=== PATIENT | male | born 1940 | race Caucasian/White ===

== ENCOUNTER 2016-08-11 00:47 | Inpatient (IN) | payer MEDICARE, BC ==
[~2016-08-11] VITALS: Ht 162.6 cm; Wt 62.9 kg
--- NOTE | ~2016-08-11 | PR ---
[place], [place] PROGRESS NOTE NAME: RADHA VELAZQUEZ [facility] #: [id number] UNIT #: [id number] ROOM: [facility] DOCTOR: PARKER CHEN MD BIRTHDATE: [birth year] DOS: 08/12/2016 SUBJECTIVE: The patient is doing fine without any complaints. Denies any chest pains, palpitations. OBJECTIVE: VITAL SIGNS: Graphic trend shows a pressure of 128/60, pulse of 62, respirations 20, temperature 98.3. LUNGS: Clear. HEART: Regular. ABDOMEN: Soft. EXTREMITIES: Without any edema. ASSESSMENT AND PLAN: 1. Acute pulmonary edema, resolved. 2. Cardiomyopathy, ejection fraction of about 30-40% on maximal treatment plan. 3. End-stage renal disease, on dialysis. The patient is encouraged not eat at restaurants every day, which increases the intake of too much of salt. The patient can be discharged to home today. PARKER CHEN MD CM:PNTRANS [id number] PARKER CHEN MD 08/12/16 0936 interface
--- NOTE | ~2016-08-11 | WRIGHTHP ---
[place], [place] PATIENT HISTORY AND PHYSICAL EXAM NAME: RADHA VELAZQUEZ [facility] #: [id number] UNIT #: [id number] ROOM: [facility] DOCTOR: PARKER CHEN MD BIRTHDATE: [birth year] DOS: 08/11/2016 HISTORY OF PRESENT ILLNESS: This patient is 76 years old. The patient states that he did undergo dialysis on Wednesday. On Wednesday morning, he started coughing, which is productive of mostly clear sputum. Did not have any fever or chills. Wednesday, he did see Dr. Chang and magnesium prescription was given. He went to [facility] to fill it up and was not available, so he went home and continued to have increasing cough and some shortness of breath, so finally decided to come into the Emergency Room. He denies having any chest pains or palpitations, does not have any fever or chills, does not have any abdominal pain, any nausea, emesis. PAST MEDICAL HISTORY: 1. Significant for coronary artery disease with history of CABG in 2015. 2. End-stage renal failure, on dialysis. 3. Metabolic encephalopathy from urinary tract infection. 4. Ischemic cardiomyopathy. 5. Type 2 diabetes mellitus, non-insulin dependent. 6. Benign hypertension. 7. History of CA of bladder, CA prostate with ileal conduit. MEDICATIONS: Nephrocaps 1 tablet daily, calcium acetate 667 mg daily, omeprazole 40 daily, glimepiride 2 mg daily, lisinopril 10 mg daily, metoprolol 50 mg daily, Namzaric 14/10 daily, simvastatin 10 at bedtime. SOCIAL HISTORY: Nonsmoker, does not use any alcohol. Lives at home alone. PHYSICAL EXAMINATION: GENERAL: He is awake and alert and oriented. VITAL SIGNS: Graphic trend shows pressure 124/61, pulse of 63, respirations 22, temperature 97.8. HEENT: Unremarkable. LUNGS: Diminished breath sounds. No wheezes heard, a few rales heard at the lung bases. HEART: Regular. ABDOMEN: Soft, nontender. EXTREMITIES: Without any edema. LABORATORY DATA: Magnesium 1.5. Chest x-ray shows cardiomegaly and mild pulmonary edema, small to moderate pleural effusions with CHF. Comprehensive, glucose 158, BUN 66, creatinine 9.79. Electrolytes okay, potassium 5.2. White blood cell count is 14.3, hemoglobin 11.8. ASSESSMENT AND PLAN: 1. The patient who presents with cough and clear sputum, most likely he has acute pulmonary edema from cardiomyopathy. He does have a habit of eating in a restaurant every day, he is advised against doing that because of the increased salt intake. He is ordered dialysis today. Cardiology consultation was obtained. He was started on nitrates in the ER, which can be discontinued. 2. End-stage renal failure, on dialysis, for which Dr. Chang has been [place], [place] PATIENT HISTORY AND PHYSICAL EXAM [facility]: [facility] [id number] UNIT #: [id number] ROOM: [facility] DOCTOR: PARKER CHEN MD BIRTHDATE: [birth year] consulted. 3. Type 2 diabetes mellitus, non-insulin dependent, controlled. PARKER CHEN MD CM:HISPHYS:PATIENT HISTORY AND PHYSICAL EXAMINATION [id number] PARKER CHEN MD 08/11/16 1057 interface
--- NOTE | ~2016-08-11 | CON ---
[place], [place] REPORT OF CONSULTATION NAME: [facility]Z [facility] [id number] UNIT #: [id number] ROOM: [facility] DOCTOR: SARKIS LEMUS MD BIRTHDATE: [birth year] DOS: 08/11/2016 CARDIOLOGY CONSULTATION REASON FOR CONSULTATION: Dyspnea and cough. HISTORY OF PRESENT ILLNESS: The patient is a 76-year-old man with a complicated history of renal insufficiency and end-stage renal disease, on dialysis. He had staghorn calculi and underwent a urinary diversion and urostomy. He did require dialysis subsequently. We saw him in 02/2015 when he presented with chest pain. A nuclear perfusion study in 02/2015 showed no ischemia and ejection fraction is 73%. An echocardiogram showed an ejection fraction of 55% at about that time. He subsequently developed pleuritic chest pain and was felt to have pericarditis. He was treated with nonsteroidal anti-inflammatory drugs. His chest discomfort improved, but he developed bleeding from his urostomy. Anti-inflammatory drugs were stopped and he seemed to do well for a time until he presented to the hospital in 01/2016 with worsening dyspnea. The patient did undergo stress testing at that time and was found to have new changes. The ventricle was dilated with transient cavity dilation noted. He had abnormal perfusion images demonstrating a moderate sized area of anterior septal and apical ischemia as well as a small area of inferoseptal ischemia. His ejection fraction deteriorated to 33%. He was sent to [facility] where cardiac catheterization did show high grade left main stenosis as well as a 70% right coronary artery stenosis. He was taken to bypass surgery on 02/19/2016. Three-vessel procedure was done with an internal mammary artery graft to the LAD, saphenous vein graft to the first obtuse marginal and saphenous vein graft to the PDA. In addition, he had a mitral valve repair utilizing a 28 mm Poncho-Valdez IMR annuloplasty ring. Postoperatively, he did require balloon pump support, but was able to wean from that. His ejection fraction remained low and he was managed with guideline directed medical therapy along with a LifeVest. Clinically, he did improve and his most recent echocardiogram showed an ejection fraction between 35% and 40%. Therefore, the LifeVest was discontinued and he was managed medically and with continued dialysis. He states that he has had episodic dyspnea recently. Last night, his dyspnea became much more severe. He was scheduled to have dialysis today, but his breathing was so bad that he came into the Emergency Room. He was felt to have acute pulmonary edema and was admitted for further management. He was given Bumex in the Emergency Room with improvement in his symptoms. He is being placed on dialysis at this time. The patient denies any chest pain. He denies any recent change in his medications and denies any medication noncompliance. PAST MEDICAL HISTORY: Includes: 1. Hypertension. 2. Hyperlipidemia. 3. Kidney stones with staghorn calculus. 4. End-stage renal disease, on dialysis. 5. Status post nephrectomy on 01/03/2016. [place], [place] REPORT OF CONSULTATION NAME: RADHA VELAZQUEZ UNIT #: [id number] ROOM: [facility] DOCTOR: SARKIS LEMUS MD BIRTHDATE: [birth year] 6. Status post cataract removal. 7. History of pericarditis. 8. Worsening chest pain prompting catheterization on 02/19/2016. The patient found to have a 70%-80% left main stenosis with a 50% LAD stenosis, 60% circumflex stenosis, 70% stenosis of a dominant right coronary artery and a 30%-35% ejection fraction. 9. Bypass surgery 02/24/2016, free left internal mammary artery graft to the LAD, saphenous vein graft to first marginal branch of circumflex, saphenous vein graft to posterior descending branch of right coronary artery with mitral valve repair utilizing a 28 mm Poncho-Valdez IMR annuloplasty ring, postoperative intraaortic balloon pump necessary for hemodynamic support. 10. Echocardiogram 05/27/2016, moderately dilated left ventricle, ejection fraction 35%-40% with global hypokinesis, stage 2 diastolic dysfunction, moderate left atrial enlargement, aortic sclerosis, mitral annuloplasty ring present, no mitral stenosis or insufficiency seen, mild tricuspid insufficiency with right ventricular systolic pressure 45-50 mmHg (moderately elevated). MEDICATIONS: Prior to admission, Nephrocaps once a day, calcium acetate 667 mg daily, Nexium 40 mg daily, glimepiride 2 mg daily, lisinopril 10 mg daily, metoprolol 50 mg daily, Namzaric 14/10 one daily at bedtime, simvastatin 10 mg at bedtime. ALLERGIES: The patient has no known drug allergies. FAMILY HISTORY: Negative for early coronary artery disease. REVIEW OF SYSTEMS: The patient denies diplopia or loss of vision. He denies lightheadedness or syncope. He denies chest pain or palpitations. He has had cough and worsening dyspnea. He denies fevers, but has occasional chills. He denies any focal weakness. He denies nausea or vomiting. He denies hemoptysis or hematemesis. He denies change in bowel or bladder habits. He does have a urostomy in place and denies any bleeding recently. He denies any peripheral edema. He denies heat or cold intolerance. Remainder of the review of systems is negative except as noted above. SOCIAL HISTORY: The patient does not smoke or consume alcohol. PHYSICAL EXAMINATION: GENERAL: The patient is an elderly white male who is awake, alert and oriented. VITAL SIGNS: Pulse is 63 and regular, blood pressure is 124/60, he is afebrile. He weighs 62.8 kilograms with a body mass index of 23.8. HEENT: Normocephalic, atraumatic. Extraocular muscles are intact. Sclerae are clear. Pupils equal, round and react to light. The oral mucosa is moist. Tongue is midline. NECK: Supple. He does have jugular distention to the angle of the jaw plus hepatojugular reflux is present. Carotids are full and I heard no bruits. He had no neck or supraclavicular masses. LUNGS: Respirations are unlabored. He has decreased breath sounds with rales at the bases. CHEST: He has no chest wall tenderness. His sternotomy scar is well healed. [place], [place] REPORT OF CONSULTATION NAME: RADHA VELAZQUEZ UNIT #: [id number] ROOM: [facility] DOCTOR: SARKIS LEMUS MD BIRTHDATE: [birth year] CARDIOVASCULAR: His heart has a regular rhythm. There is a grade 2/6 systolic murmur along the left sternal border in the fourth intercostal space. There is no radiation. He has a fourth heart sound. I did not hear a third heart sound. The PMI is not obviously displaced and there is no precordial heave, lift or thrill. ABDOMEN: Soft and normally active without masses, organomegaly or bruits. EXTREMITIES: Showed no edema. Peripheral pulses were diminished in the feet. LABORATORY DATA: Electrocardiogram showed sinus rhythm. IMPRESSION: 1. Acute congestive heart failure in setting of left ventricular systolic and diastolic dysfunction along with chronic renal failure, on dialysis. 2. End-stage renal disease, on dialysis. 3. Coronary artery disease, status post recent bypass surgery for left main disease. The patient also had mitral valve repair at the same time. 4. Most recent stress test in 04/2016 showed an ejection fraction of about 35%-40%, no significant mitral insufficiency or stenosis, stage 2 diastolic dysfunction. 5. History of hypertension. 6. History of diabetes. 7. History of kidney stones requiring diverting urostomy and single nephrectomy. PLAN: The patient will be dialyzed today. His beta cindy and CATALINA inhibitor will be increased. We will check an echocardiogram for left ventricular function and make further recommendations depending on his response to the therapy and echo results. We thank Dr. Serna and Dr. Miller for asking our advice regarding management of this patient. SARKIS LEMUS MD CM:CONSTR:REPORT OF CONSULTATION 0900 08/11/16 1010 interface
[~2016-08-11 00:47] MED LIST: ALPRAZOLAM0.5 M3 PO; AMARYL2 MG PO; AMLODIPINE10 MG PO; ASPIRIN325 MG PO; ASPIRIN81 M1 PO; CALPHRON667 MG PO; CEFTIN250 MG PO; CEFTRIAXONE1 GM IJ; CEFUROXIME AXE250 MG PO; CIPRO500 MG PO; CLOPIDOGREL75 MG PO; DELTASONE5 MG PO; DOXYCYCLINE100 M3 PO; DUONEB 3 MG/3 ML3 M1 NEB; GLIMEPIRIDE4 MG PO; GOOD SENSE ASP325 MG PO; HYDROCODONE BIT1 T11 PO; IBU800 M1 PO; LEVAQUIN250 M1 PO; LEVAQUIN500 M2 PO; LISINOPRIL5 MG PO; NEPHRO-VITE RX1 TAB PO; NEPHRO-VITE1 TA1 PO; NEPHROCAPS1 SGL PO; NEXIUM40 MG PO; NORVASC10 MG PO; PHOSLO667 M1 PO; PLAVIX75 M1 PO; PREDNISONE10 MG PO; SANTYL250 U/GM T; SEROQUEL25 MG PO; SIMVASTATIN10 MG PO; SYMBICORT1 AE1 INH; TOPROL XL25 MG PO; TRAMADOL HCL50 MG PO; VENTOLIN H0.09 MG/AC INH; VITAMIN C PO; VITAMIN C1 TAB PO; VITAMIN C250 M2 PO
[2016-08-11] MEDS ORDERED: NAMZARIC 14 MG1 EACH PO (00:55)
[2016-08-11] MEDS ORDERED: LISINOPRIL10 M1 PO (00:55)
[2016-08-11 01:22] LABS: BASO # 0.1 10*3/uL (0.0-0.1); EOS # 0.2 10*3/uL (0.0-0.4); EOS % 1.3 % (1.0-4.0); HEMATOCRIT 36.9 % (42.0-52.0); HEMOGLOBIN 11.8 g/dl (14.0-18.0); IG # 0.1 10*3/uL (0.0-0.1); LYMPH # 3.3 10*3/uL (1.3-4.4); LYMPH % 23.1 % (27.0-41.0); MEAN CELL VOLUME 88.7 fl (80.0-94.0); MEAN CORPUSCULAR HGB 28.4 pg (27.0-31.0); MEAN PLATELET VOLUME 10.7 fl (9.6-12.3); MONO # 1.1 10*3/uL (0.1-1.0); MONO % 7.6 % (3.0-9.0); NEUT # 9.4 10*3/uL (2.3-7.9); PLATELET COUNT AUTOMATED 163 10*3/uL (130-400); RED BLOOD COUNT 4.16 10*6/uL (4.50-5.90); RED CELL DISTRI WIDTH 16.5 % (0-14.5); WHITE BLOOD COUNT 14.3 10*3/uL (4.8-10.8)
[2016-08-11 01:38] LABS: ALBUMIN 3.5 gm/dl (3.1-4.5); BILIRUBIN, TOTAL 0.5 mg/dl (0.2-1.0); POTASSIUM 5.2 mmol/L (3.5-5.1); TOTAL PROTEIN 8.3 gm/dL (6.4-8.2); TROPONIN I 0.045 ng/ml (<0.045)
[2016-08-12] MEDS ORDERED: MAGNESIUM OXID400 MG PO (08:22)
== END 2016-08-12 08:55 | disposition home or self-care (01) | DRG 291 ==
LOC: ED 00:47 → EDHOLD 02:22 → ICCU 02:37
PROVIDERS: Emergency Medicine Emergency Medical Services
PROC: 5A1D00Z (ICD-10-PCS; principal; 2016-08-11)
DX: I13.2 Hypertensive heart and chronic kidney disease with heart failure and with stage 5 chronic kidney disease, or end stage renal disease (principal); N18.6 End stage renal disease; I42.9 Cardiomyopathy, unspecified; I50.43 Acute on chronic combined systolic (congestive) and diastolic (congestive) heart failure; E83.42 Hypomagnesemia; E11.22 Type 2 diabetes mellitus with diabetic chronic kidney disease; I25.10 Atherosclerotic heart disease of native coronary artery without angina pectoris; Z99.2 Dependence on renal dialysis; Z98.49 Cataract extraction status, unspecified eye

== ENCOUNTER 2016-08-24 19:13 | Inpatient (IN) | payer MEDICARE, BC ==
[~2016-08-24] VITALS: Ht 162.6 cm; Wt 59.1 kg
--- NOTE | ~2016-08-24 | PR ---
[place], [place] PROGRESS NOTE NAME: RADHA VELAZQUEZ UNIT #: [id number] ROOM: [id number] DOCTOR: TALI STONE,FIORELLA Rodrigues BIRTHDATE: [birth year] DOS: SUBJECTIVE: The patient is doing fine without any new complaints. He is anxious to go home. OBJECTIVE: VITAL SIGNS: Temperature is 137/71, pulse is 61, respirations 20, temperature 98.1. LUNGS: Clear. HEART: Regular. ABDOMEN: Soft. EXTREMITIES: Without any edema. Ileostomy working fine. LABORATORY DATA: MRSA nares negative. Urine culture 100,000 colonies of gram-negative bacteria. DIAGNOSTIC DATA: Chest x-ray shows normal pulmonary vasculature without any evidence of CHF. ASSESSMENT AND PLAN: 1. Acute congestive heart failure, systolic, status post hemodialysis yesterday and the patient is fine. He really needs to be encouraged to stop eating salty foods. The patient is stable and can be discharged. 2. Urinary tract infection with gram-negative. Cipro's prescription is given for 250 mg every other day. FIORELLA CESAR MD CM:PNTRANS [id number] FIORELLA CESAR MD 08/26/16 1031 interface
--- NOTE | ~2016-08-24 | WRIGHTHP ---
[place], [place] PATIENT HISTORY AND PHYSICAL EXAM NAME: RADHA VELAZQUEZ [facility] #: [id number] UNIT #: [id number] ROOM: [facility] DOCTOR: PARKER CHEN MD BIRTHDATE: [birth year] DOS: 08/24/2016 HISTORY OF PRESENT ILLNESS: The patient is a 76-year-old, very well known to us, comes in with complaints of acute onset of shortness of breath, which started in the middle of the night with a cough, which is productive of clear frothy sputum. He was brought into the Emergency Room where he was found to be in CHF and was admitted. The patient states that he had dialysis on Wednesday. On Wednesday, he was in [place] and stopped at the [facility] and he had a lot of ferreira from the buffet. He is aware of the fact that he should not be eating high salty foods, but he is not very compliant. He denies having any chest pains or any palpitations this morning. PAST MEDICAL HISTORY: Significant for; 1. Acute respiratory failure with acute congestive heart failure, systolic, a few weeks ago. 2. Noncompliance with poor insight to medical problems. 3. Coronary artery disease of morongo coronary, status post CABG in 2016. 4. End-stage renal failure, on dialysis. 5. Benign hypertension. 6. Type 2 diabetes mellitus, non-insulin dependent. 7. History of CA of the ureter, CA of the bladder, and CA of the prostate with the ileal conduit. SOCIAL HISTORY: Nonsmoker, does not use any alcohol. PHYSICAL EXAMINATION: GENERAL: The patient is awake and alert and oriented, in no distress, in the ICU, was started on dialysis already. VITAL SIGNS: Blood pressure is 139/58, pulse is 60, respirations 19, and temperature 98.2. LUNGS: Diminished breath sounds, clear. HEART: Regular. ABDOMEN: Obese, soft, nontender. EXTREMITIES: Without any edema, ileostomy draining clear urine. ASSESSMENT AND PLAN: 1. The patient, who presents with acute onset shortness of breath from acute systolic congestive heart failure. The patient is ordered emergent dialysis. After the dialysis, a chest x-ray will be ordered and if it looks good, the patient should be able to go home. 2. End-stage renal failure, on dialysis. May require a short dialysis on Mondays to avoid further problems like this and this is the second admission. 3. Benign hypertension, controlled. The patient is encouraged to watch his diet a little bit more carefully, especially avoiding salty foods. [place], [place] PATIENT HISTORY AND PHYSICAL EXAM NAME: RADHA VELAZQUEZ UNIT #: [id number] ROOM: [facility] DOCTOR: PARKER CHEN MD BIRTHDATE: [birth year] PARKER CHEN MD CM:HISPHYS:PATIENT HISTORY AND PHYSICAL EXAMINATION [id number] PARKER CHEN MD 08/25/16 1034 interface
[~2016-08-24 19:13] MED LIST changes: +LISINOPRIL10 M1 PO; +MAGNESIUM OXID400 MG PO; +NAMZARIC 14 MG1 EACH PO
[2016-08-24 19:27] VITALS: BP 179/75
[2016-08-24 19:51] LABS: BASO # 0.1 10*3/uL (0.0-0.1); BASO % 0.7 % (0.0-1.0); EOS # 0.2 10*3/uL (0.0-0.4); EOS % 1.8 % (1.0-4.0); HEMOGLOBIN 11.7 g/dl (14.0-18.0); IG # 0.1 10*3/uL (0.0-0.1); LYMPH % 23.8 % (27.0-41.0); MEAN CORPUSCULAR HGB 29.3 pg (27.0-31.0); MEAN CORPUSCULAR HGB CONC 32.5 g/dl (33.0-37.0); MEAN PLATELET VOLUME 10.9 fl (9.6-12.3); MONO # 1.1 10*3/uL (0.1-1.0); MONO % 8.5 % (3.0-9.0); NEUT # 8.1 10*3/uL (2.3-7.9); NEUT % 64.4 % (47.0-73.0); PLATELET COUNT AUTOMATED 161 10*3/uL (130-400); RED CELL DISTRI WIDTH 15.5 % (0-14.5); WHITE BLOOD COUNT 12.6 10*3/uL (4.8-10.8)
[2016-08-24 19:59] LABS: INTERNATIONAL NORM RATIO 1.2 (2.0-3.5); PROTHROMBIN TIME 12.5 SECONDS (9.0-12.4)
[2016-08-24 20:09] LABS: ALBUMIN 3.1 gm/dl (3.1-4.5); BILIRUBIN, TOTAL 0.4 mg/dl (0.2-1.0); POTASSIUM 5.5 mmol/L (3.5-5.1); TOTAL PROTEIN 8.4 gm/dL (6.4-8.2); TROPONIN I 0.028 ng/ml (<0.045)
[2016-08-24 20:10] VITALS: BP 156/75
[2016-08-24 20:35] VITALS: BP 157/54
[2016-08-24 20:40] LABS: ABG BASE EXCESS 0.4 mmol/L (-2.0-2.0); ABG CO2 CONTENT 24.8 mmol/L (23-27); ABG HCO3 23.7 mmol/l (22-26); ARTERIAL BLOOD GAS PH 7.443 (7.35-7.45); ARTERIAL BLOOD GAS PO2 73.4 mmHg (80-90)
[2016-08-24 21:02] VITALS: BP 152/58
[2016-08-24 21:15] VITALS: BP 142/56; BP 142/66
[2016-08-24] MEDS ORDERED: DULCOLAX5 M1 PO (21:39)
[2016-08-24 22:20] LABS: BILIRUBIN NEGATIVE (NEGATIVE); BLOOD 3+ (NEGATIVE); CLARITY CLOUDY (CLEAR); COLOR YELLOW (YELLOW); GLUCOSE NEGATIVE (NEGATIVE); KETONE NEGATIVE (NEGATIVE); LEUKO ESTERASE 3+ (NEGATIVE); NITRITE NEGATIVE (NEGATIVE); PROTEIN 3+ (NEGATIVE); SPECIFIC GRAVITY 1.015 (1.005-1.030); UROBILINOGEN 0.2 E.U./dl (0.2-1.0)
[2016-08-24] MEDS ORDERED: TESSALON PERLE100 MG PO (22:33)
[2016-08-24 22:39] LABS: URINE REFLEX COMMENT YES (NO); WBC TNTC wbc/hpf (0-5)
[2016-08-25] VITALS (12 sets, daily range): BP systolic 96–159; BP diastolic 45–75
[2016-08-26] VITALS: BP 150/68; BP 1509/68
[2016-08-26 08:00] VITALS: BP 137/71
[2016-08-26] MEDS ORDERED: CIPRO250 MG PO (08:18)
== END 2016-08-26 08:44 | disposition home or self-care (01) | DRG 291 ==
LOC: ED 19:13 → 4E 19:51 → EDHOLD 19:51 → ICCU 20:29 → 4E 08-25 13:57
PROVIDERS: Emergency Medicine
PROC: 5A1D00Z (ICD-10-PCS; principal; 2016-08-25)
DX: I13.2 Hypertensive heart and chronic kidney disease with heart failure and with stage 5 chronic kidney disease, or end stage renal disease (principal); N18.6 End stage renal disease; J81.1 Chronic pulmonary edema; E11.22 Type 2 diabetes mellitus with diabetic chronic kidney disease; I50.23 Acute on chronic systolic (congestive) heart failure; N39.0 Urinary tract infection, site not specified; Z99.2 Dependence on renal dialysis; Z85.51 Personal history of malignant neoplasm of bladder; Z85.46 Personal history of malignant neoplasm of prostate; Z85.54 Personal history of malignant neoplasm of ureter; Z91.14 Patient's other noncompliance with medication regimen; I25.10 Atherosclerotic heart disease of native coronary artery without angina pectoris; Z95.1 Presence of aortocoronary bypass graft; D63.1 Anemia in chronic kidney disease; K21.9 Gastro-esophageal reflux disease without esophagitis; Z87.891 Personal history of nicotine dependence; I25.5 Ischemic cardiomyopathy

== ENCOUNTER 2016-09-29 11:53 | Inpatient (IN) | payer MEDICARE, BC ==
[~2016-09-29] VITALS: Ht 157.4 cm; Wt 62.3 kg
--- NOTE | ~2016-09-29 | CON ---
[place], [place] REPORT OF CONSULTATION [id number] UNIT #: [id number] ROOM: 520 DOCTOR: ALDAIR KANG MD,SERGEY BIRTHDATE: [birth year] DOS: 09/30/2016 PULMONARY CONSULTATION EVALUATION AND MANAGEMENT CONSULTATION REQUESTED BY: Dr. Melina Serna for assessment of the current pleural fluid. HISTORY OF PRESENT ILLNESS: A 76 years old white male who has been known to me from the past. The patient admitted to the hospital the patient as he has been developing symptoms of increased chest congestion, coughing with intermittent sputum expectoration for this patient. He was also noted with symptoms of shortness breath with some wheezing at time. The wheezing was noted only mild. The symptoms have progressed for this patient requiring assessment in the Emergency Room. The patient was assessed in the Emergency Room for the patient, was noted with acute exacerbation of chronic obstructive pulmonary disease and acute bronchitis. Chest x-ray described as the findings of pleural effusions. The patient has been hospitalized for this patient for the further medical management. The patient has a CT scan of the chest, which was ordered by Dr. Melina Serna completed was showing evidence of pleural effusion. I was asked to see the patient for possible thoracentesis consideration and to assess the patient ongoing acute abnormal respiratory symptoms. He denies any symptoms of chest pain. There were no symptoms of hemoptysis or chest trauma. REVIEW OF SYSTEMS: CONSTITUTIONAL SYMPTOMS: Denies symptoms of fatigue, tiredness, fever or chills. EYES: Denies any burning, redness, or tenderness. EARS, NOSE, AND THROAT: No sore throat, hoarseness, otalgia, postnasal drainage. CARDIOVASCULAR SYSTEM: Denies anginal pain, edema or pain of the lower extremities. GASTROINTESTINAL SYMPTOMS: Denies symptoms of dysphagia, nausea, vomiting, diarrhea, abdominal pain, hematemesis, melena. GENITOURINARY SYMPTOMS: Denies dysuria, suprapubic pain, history of end-stage renal failure. History of cancer of the ureter for this patient as well. MUSCULOSKELETAL SYMPTOMS: Denies acute joint pain, redness, or tenderness. SKIN: Denies any lesions or rashes. CENTRAL NERVOUS SYSTEM: Denies symptoms of diplopia, headache or seizures. Remaining systems were reviewed with the patient, they were noted all negative. PAST MEDICAL HISTORY: 1. End-stage renal failure, hemodialysis on Wednesday, and Saturdays. 2. Mild kidney stones with left nephrectomy for the patient because of kidney malfunctions. 3. History of tobacco use. 4. History of cancer of the bladder of the patient diversion ureterostomy. 5. Type 2 diabetes mellitus. 6. History of essential hypertension. [place], [place] REPORT OF CONSULTATION NAME: RADHA VELAZQUEZ UNIT #: [id number] ROOM: [facility] DOCTOR: ALDAIR KANG MD,SERGEY BIRTHDATE: [birth year] PAST SURGICAL HISTORY: 1. Left arm graft for this patient for the dialysis of the patient which is described with malfunction as per the patient recently. 2. Left nephrectomy, which was done [facility], which was described to be nonmalignant. 3. Hysterectomy. 4. Prostatectomy. 5. Uteroscopy. 6. Kidney stent insertion. SOCIAL HISTORY: The patient lives at home, , has 2 children. Denies history of alcohol use or illicit drug use. Tobacco use for the patient noted since teenager, pack of cigarettes per day until 1995. FAMILY HISTORY: The patient noted with history of cirrhosis of the liver and type 2 diabetes mellitus. MEDICATIONS: Current administered medication was noted as use of levalbuterol, metoprolol succinate, lisinopril, Protonix, Namzaric 14 mg daily, simvastatin, Tessalon Perles, other p.r.n. medications administration. ALLERGIES: The drug allergy history of the patient was noted as no known drug allergies. PHYSICAL EXAMINATION: GENERAL: A 76 years old white male who has been currently noted to be awake and alert without any distress. Height of 5 feet 2 inches, weight of 137 pounds, BMI 25.1. VITAL SIGNS: Normal temperature, respiratory rate 20-22, heart rate 82-91, blood pressure 133/67-160/88. The admission blood pressure noted as 160/100. A pulse oxygen saturation of the patient noted on room air was 96% saturation. HEENT: . NECK: Supple. Head was atraumatic. CARDIOVASCULAR SYSTEM: S1, S2 audible. LUNGS: The patient was noted without any crackles. Scattered wheezing. Decreased breath sounds noted in the lower portion of the lungs for this patient. Right greater than the left. ABDOMEN: Soft, nontender, flat. EXTREMITIES: Show no edema, clubbing or cyanosis. AV fistula formation of the left upper extremity was seen. SKIN: No lesions or rashes. MUSCULOSKELETAL SYMPTOMS: No deformities. CENTRAL NERVOUS SYSTEM: No focal deficit. Cranial nerves 2-12 intact. LABORATORY DATA: CBC of the patient on 09/29/2016, WBC count 10.3, hemoglobin 11.2, hematocrit 34.2, platelet count was normal. PT/PTT yesterday was noted as normal on admission. CMP yesterday on admission, BUN of 17, creatinine 4.47. Electrolytes grossly noted normal. Total protein elevated at 8.5. Bedside blood glucose noted 6 and 25 this morning. The BMP of the patient for this patient this morning, glucose 6 and 25, BUN 39, creatinine of 7.02. Sodium 132, [place], [place] REPORT OF CONSULTATION NAME: RADHA VELAZQUEZ UNIT #: [id number] ROOM: [facility] DOCTOR: ALDAIR KANG MD,[facility] BIRTHDATE: [birth year] chloride of 89. Ketone was noted negative in the urine. Chest x-ray of the patient that was done shows small bilateral pleural fluid, great on the right than the left side. CT scan of the chest for the patient, which was done without contrast yesterday completed as well shows evidence of a small possible moderate pleural fluid on the right side for this patient and very small left-sided pleural fluid was seen. Pulmonary venous congestion noted with the cardiomegaly. IMPRESSION: 1. The patient who has been currently admitted to the hospital with findings consistent with acute exacerbation of chronic obstructive pulmonary disease and acute tracheobronchitis. 2. Severely uncontrolled hyperglycemia secondary use of corticosteroids has been discontinued this morning. There was no evidence of diabetic ketoacidosis. 3. Pleural fluid for the patient, which has been noted on CT scan of the chest. 4. History of end-stage renal failure, hemodialysis patient every Wednesday, and Wednesday. 5. Electrolyte imbalance of the patient secondary to current end-stage renal failure on hemodialysis. 6. History of bladder cancer. PLAN OF TREATMENT: The assessment has been done at the bedside for this patient where the ultrasound shows a small pleural fluid for this patient. Possibly moderate about 150-200 mL potentially was present in the right side. Left pleural fluids were noted negligible. At this time, I would not be attempting any thoracentesis as the fluid was noted small at this time and most likely related to the congestive heart failure, end-stage renal failure, finding need to be monitored and managed with conservative treatment. The patient will be requiring hemodialysis for the patient. Extra free fluid removed for the patient and monitoring of the pleural fluid will be advised. The pleural fluid further increases at this time or there is any consideration for infection for this patient certainly thoracentesis could be done at that time. Agree with discontinuation of Solu-Medrol. The patient got severe hyperglycemia. Continue to manage the diabetes mellitus and hyperglycemia. Bronchodilator to be continued at this time as ordered. This should result in resolution of the wheezing. The patient will be started on oral antibiotics for this patient for the medical management of acute tracheobronchitis as well. The Pulmicort Respules could be added as alternative treatment to resolve the acute exacerbation of chronic obstructive pulmonary disease as well. The patient was asked for continued abstinence from tobacco use. Supportive therapy, plan of management, other care, usual plan of management as well. Further treatment changes will be done based on the progression of the illness. [place], [place] REPORT OF CONSULTATION NAME: RADHA VELAZQUEZ UNIT #: [id number] ROOM: 520 DOCTOR: SERGEY HERRERA MD BIRTHDATE: [birth year] SERGEY QUINTEROS MD CM:CONSTR:REPORT OF CONSULTATION 1238 10/01/16 0438 interface
--- NOTE | ~2016-09-29 | WRIGHTHP ---
[place], [place] PATIENT HISTORY AND PHYSICAL EXAM NAME: RADHA VELAZQUEZ [facility] #: [id number] UNIT #: [id number] ROOM: 520 DOCTOR: PARKER CHEN MD BIRTHDATE: [birth year] DOS: 09/29/2016 HISTORY OF PRESENT ILLNESS: The patient is 76 years old. The patient states for the last 2 days, he has had a terrible cough and has not been able to stop coughing at all. He had dialysis yesterday and he did fine, but continued to cough. He went home and since the cough persisted, his son brought him to the Emergency Room. He also had some mild shortness of breath by then, and he was coughing up white frothy sputum. He was evaluated in the ER, was thought to be having acute bronchitis and exacerbation of COPD and so, he was given steroids in the ER and he was admitted. His chest x-ray showed bilateral small pleural effusions in the ER. After admission, he did fine without any complaints during the night. This morning, he had a CAT scan, but I was not informed about the results. This morning, his blood sugar was 600. Initially, we did start workup to rule out DKA. The patient's acetone level is pending at the time of dictation, but a stat basic metabolic shown wide anion gap. He does not have any complaints of chest pains or palpitations. Cough is improving. He does not have any leg edema. He has had some problems with his shunt getting clotted off yesterday, but he did complete his dialysis as per the patient. PAST MEDICAL HISTORY: Significant for: 1. Coronary artery disease with history of LV dysfunction and multiple admissions for congestive heart failure. 2. Type 2 diabetes mellitus, non-insulin dependent. 3. End-stage renal failure, on dialysis. 4. Benign hypertension. 5. CA of the ureter, bladder and prostate with ileal conduit. MEDICATIONS: Home medications, Tessalon Perles, Dulcolax, Nephrocaps, calcium acetate, omeprazole, lisinopril, metoprolol, Namzaric and simvastatin. SOCIAL HISTORY: Nonsmoker, does not use any alcohol. PHYSICAL EXAMINATION: GENERAL: He is awake and alert and oriented. VITAL SIGNS: Blood pressure is 124/64, pulse of 95, respirations 20, temperature 98.2. LUNGS: Diminished breath sounds, very poor air entry. HEART: Regular and tachycardic. ABDOMEN: Soft, with ileal conduit in place. EXTREMITIES: Without any edema. ASSESSMENT AND PLAN: 1. The patient with cough and shortness of breath. A CT of the chest shows bilateral pleural effusion, worse on the right side. I will ask Dr. Henson for an opinion, whether the patient would benefit from thoracentesis is a question, assess for home O2. 2. Irregular heartbeat. EKG appears to show sinus tachy with multiple premature atrial contractions. We will increase the dose of the metoprolol and avoid DuoNeb, which he has received during the night. 3. End-stage renal failure. Discussed with Dr. Saleem. There have been some [place], [place] PATIENT HISTORY AND PHYSICAL EXAM [facility]: [id number] UNIT #: [id number] ROOM: [facility] DOCTOR: PARKER CHEN MD BIRTHDATE: [birth year] issues with his shunt clogging off. He may need to go to an outpatient facility for an outpatient procedure, but Dr. Saleem will see him later today and he will make the decision. 4. Type 2 diabetes mellitus with steroid-induced hyperglycemia. Even though the wide anion gap was noted, ketone level was normal, so the patient will not be given any IV insulin. I will cover with insulin and let the blood sugars trend down. We will also discontinue the steroids. 5. Acute bronchitis, p.o. antibiotics will be started. PARKER CHEN MD CM:HISPHYS:PATIENT HISTORY AND PHYSICAL EXAMINATION [id number] PARKER CHEN MD 09/30/16 0922 interface
[~2016-09-29 11:53] MED LIST changes: +CIPRO250 MG PO; +DULCOLAX5 M1 PO; +TESSALON PERLE100 MG PO
[2016-09-29 11:54] VITALS: BP 160/100
[2016-09-29 12:43] LABS: BASO # 0.1 10*3/uL (0.0-0.1); EOS # 0.1 10*3/uL (0.0-0.4); EOS % 1.3 % (1.0-4.0); HEMATOCRIT 34.2 % (42.0-52.0); HEMOGLOBIN 11.2 g/dl (14.0-18.0); IG # 0.1 10*3/uL (0.0-0.1); LYMPH # 2.4 10*3/uL (1.3-4.4); LYMPH % 23.4 % (27.0-41.0); MEAN CELL VOLUME 91.7 fl (80.0-94.0); MEAN CORPUSCULAR HGB CONC 32.7 g/dl (33.0-37.0); MEAN PLATELET VOLUME 10.7 fl (9.6-12.3); MONO % 9.2 % (3.0-9.0); NEUT # 6.6 10*3/uL (2.3-7.9); NEUT % 63.8 % (47.0-73.0); PLATELET COUNT AUTOMATED 194 10*3/uL (130-400); RED BLOOD COUNT 3.73 10*6/uL (4.50-5.90); WHITE BLOOD COUNT 10.3 10*3/uL (4.8-10.8)
[2016-09-29 12:53] LABS: INTERNATIONAL NORM RATIO 1.1 (2.0-3.5); PROTHROMBIN TIME 11.9 SECONDS (9.0-12.4)
[2016-09-29 12:59] LABS: ALBUMIN 3.2 gm/dl (3.1-4.5); BILIRUBIN, TOTAL 0.5 mg/dl (0.2-1.0); C-REACTIVE PROTEIN 8.3 MG/DL (0-0.3); CKMB 2.2 ng/ml (0.5-3.6); MAGNESIUM 1.6 mg/dL (1.5-2.1); POTASSIUM 3.7 mmol/L (3.5-5.1); TOTAL PROTEIN 8.5 gm/dL (6.4-8.2); TROPONIN I 0.024 ng/ml (<0.045)
[2016-09-29 14:04] VITALS: BP 133/65
[2016-09-29 15:00] VITALS: BP 155/73
[2016-09-29 16:00] VITALS: BP 178/74
[2016-09-29 20:00] VITALS: BP 152/65
[2016-09-30] VITALS: BP 124/64
[2016-09-30 08:00] VITALS: BP 160/88
[2016-09-30 12:00] VITALS: BP 133/67
== END 2016-09-30 16:02 | disposition home or self-care (01) | DRG 291 ==
LOC: ED 11:53 → EDHOLD 13:36 → 5E 13:36
PROVIDERS: Emergency Medicine; Internal Medicine
DX: I13.2 Hypertensive heart and chronic kidney disease with heart failure and with stage 5 chronic kidney disease, or end stage renal disease (principal); N18.6 End stage renal disease; E11.00 Type 2 diabetes mellitus with hyperosmolarity without nonketotic hyperglycemic-hyperosmolar coma (NKHHC); I42.9 Cardiomyopathy, unspecified; I50.43 Acute on chronic combined systolic (congestive) and diastolic (congestive) heart failure; J44.0 Chronic obstructive pulmonary disease with (acute) lower respiratory infection; J44.1 Chronic obstructive pulmonary disease with (acute) exacerbation; E11.22 Type 2 diabetes mellitus with diabetic chronic kidney disease; I25.10 Atherosclerotic heart disease of native coronary artery without angina pectoris; E87.8 Other disorders of electrolyte and fluid balance, not elsewhere classified; J20.9 Acute bronchitis, unspecified; K21.9 Gastro-esophageal reflux disease without esophagitis; E78.5 Hyperlipidemia, unspecified; D63.8 Anemia in other chronic diseases classified elsewhere; E53.8 Deficiency of other specified B group vitamins; T38.0X5A Adverse effect of glucocorticoids and synthetic analogues, initial encounter; I49.1 Atrial premature depolarization; Y92.89 Other specified places as the place of occurrence of the external cause; Z79.899 Other long term (current) drug therapy; Z85.54 Personal history of malignant neoplasm of ureter; Z90.79 Acquired absence of other genital organ(s); Z90.5 Acquired absence of kidney; Z83.79 Family history of other diseases of the digestive system; Z83.3 Family history of diabetes mellitus; Z87.440 Personal history of urinary (tract) infections; Z95.1 Presence of aortocoronary bypass graft; Z87.891 Personal history of nicotine dependence

== ENCOUNTER → 2016-11-17 | Outpatient (CLI) | payer MEDICARE, BC | END | disposition home or self-care (01) | LOC: RAD 10:15 | DX: I11.0 Hypertensive heart disease with heart failure (principal); I50.9 Heart failure, unspecified; J90 Pleural effusion, not elsewhere classified; E11.9 Type 2 diabetes mellitus without complications; Z95.1 Presence of aortocoronary bypass graft; Z87.891 Personal history of nicotine dependence ==

== ENCOUNTER → 2017-01-14 | Outpatient (CLI) | payer MEDICARE, BC | END | disposition home or self-care (01) | LOC: LAB 07:30 → CT 08:00 | PROVIDERS: Internal Medicine Critical Care Medicine | DX: J90 Pleural effusion, not elsewhere classified (principal); R06.02 Shortness of breath ==

== ENCOUNTER 2017-01-31 09:37 | Inpatient (IN) | payer MEDICARE, BC ==
[~2017-01-31] VITALS: Ht 157.4 cm; Wt 59.0 kg
--- NOTE | ~2017-01-31 | EKG ---
[place], [place] ELECTROCARDIOGRAM REPORT NAME: RADHA VELAZQUEZ UNIT #: [id number] ROOM: 412 DOCTOR: ANSLEY STONE,JARAD BIRTHDATE: [birth year] DOS: 01/31/2017 TIME: 9:44 a.m. IMPRESSION: 1. Sinus rhythm, rate 100. 2. Probable left atrial enlargement. 3. Left ventricular hypertrophy. JARAD PANCHAL MD CM:EKGRPT:ELECTROCARDIOGRAM REPORT [id number] JARAD PANCHAL MD
--- NOTE | ~2017-01-31 | WRIGHTHP ---
[place], [place] PATIENT HISTORY AND PHYSICAL EXAM NAME: RADHA VELAZQUEZ [facility] #: [id number] UNIT #: [id number] ROOM: 412 DOCTOR: PARKER CHEN MD BIRTHDATE: [birth year] DOS: HISTORY OF PRESENT ILLNESS: A 76 years old patient is very well known to us, presents with complaints of acute onset of shortness of breath. The patient called his son and was brought to the Emergency Room. He had significant hypoxemia when he arrived to the Emergency Room. He was also noticed to have JVD elevation. The patient is not very compliant with his diet. He, after his dialysis today, went home and brought some ____ from a local store and had the [facility] [employer] sauce and soon after that he developed increasing shortness of breath. The patient has been told multiple times over the last several months that he should not be eating anything salty. He claims that ____ did not taste salty. He does not have any chest pains or palpitations, does not have any fever or chills. He was admitted to the hospital, received 2 hours of dialysis, which helped him significantly, feeling good this morning. PAST MEDICAL HISTORY: Significant for; 1. Multiple hospitalizations with CHF. 2. Coronary artery disease. 3. Type 2 diabetes mellitus, non-insulin dependent. 4. End-stage renal failure, on dialysis. 5. Benign hypertension. 6. CA of the ureter, bladder and prostate with ileal conduit. 7. History of CABG. MEDICATIONS: That he is on are DuoNeb, calcium acetate, omeprazole, glimepiride, lisinopril, metoprolol, Namzaric and simvastatin. SOCIAL HISTORY: Nonsmoker. Does not use any alcohol. PHYSICAL EXAMINATION: VITAL SIGNS: Blood pressure is 135/64, pulse of 75, respirations 18 and temperature 98.1. LUNGS: Clear this morning. HEART: Regular. ABDOMEN: Soft, scaphoid. EXTREMITIES: Without any edema. LABORATORY DATA: At the time of admission, WBC count is 11.6, hemoglobin 11.4, hematocrit 38.2 and lactic acid 2.5. Chest x-ray: Congestive heart failure. There is also focal infiltrate in the right lower lobe. ASSESSMENT AND PLAN: 1. Acute hypoxic respiratory failure. The patient was given ____ extra dose of dialysis and seems to be better this morning, however, excessive oximetry. 2. Acute systolic congestive heart failure with last echocardiogram done on July 2016. We need to repeat that as an outpatient he is on maximal treatment plan. Advised to avoid high salty foods, which he is already aware of. 3. End-stage renal failure, on dialysis, stable. 4. Type 2 diabetes mellitus, non-insulin dependent. Blood sugar is controlled. [place], [place] PATIENT HISTORY AND PHYSICAL EXAM [facility]: [facility] [id number] UNIT #: [id number] ROOM: [facility] DOCTOR: PARKER CHEN MD BIRTHDATE: [birth year] PARKER CHEN MD CM:HISPHYS:PATIENT HISTORY AND PHYSICAL EXAMINATION 5 PARKER CHEN MD 02/01/17825 interface
[2017-01-31 09:37] VITALS: BP 177/84
[2017-01-31 10:00] VITALS: BP 176/80
[2017-01-31 10:11] LABS: BASO # 0.1 10*3/uL (0.0-0.1); BASO % 0.9 % (0.0-1.0); EOS # 0.1 10*3/uL (0.0-0.4); EOS % 0.9 % (1.0-4.0); HEMATOCRIT 38.2 % (42.0-52.0); HEMOGLOBIN 11.4 g/dl (14.0-18.0); LYMPH # 1.3 10*3/uL (1.3-4.4); LYMPH % 11.4 % (27.0-41.0); MEAN CELL VOLUME 93.9 fl (80.0-94.0); MEAN CORPUSCULAR HGB CONC 29.8 g/dl (33.0-37.0); MEAN PLATELET VOLUME 10.9 fl (9.6-12.3); MONO # 0.7 10*3/uL (0.1-1.0); MONO % 5.9 % (3.0-9.0); NEUT # 9.3 10*3/uL (2.3-7.9); NEUT % 80.2 % (47.0-73.0); PLATELET COUNT AUTOMATED 197 10*3/uL (130-400); RED BLOOD COUNT 4.07 10*6/uL (4.50-5.90); WHITE BLOOD COUNT 11.6 10*3/uL (4.8-10.8)
[2017-01-31 10:20] LABS: ACT PARTIAL THROMBO TIME 27.9 SECONDS (20.8-31.5); INTERNATIONAL NORM RATIO 1.2 (2.0-3.5)
[2017-01-31 10:30] VITALS: BP 159/87
[2017-01-31 10:32] LABS: ALBUMIN 3.1 gm/dl (3.1-4.5); ALKALINE PHOSPHATASE 99 U/L (45-117); BUN 23 mg/dl (7-24); CHLORIDE 95 mmol/L (98-107); CREATININE 5.43 mg/dL (0.70-1.30); MAGNESIUM 1.9 mg/dL (1.5-2.1); POTASSIUM 3.8 mmol/L (3.5-5.1); SGOT/AST 16 IU/L (3-35); SGPT/ALT 16 U/L (12-78); SODIUM 138 mmol/L (136-145); TOTAL PROTEIN 8.6 gm/dL (6.4-8.2)
[2017-01-31 10:33] LABS: TROPONIN I 0.043 ng/ml (<0.045)
[2017-01-31 10:50] LABS: NT-proBNP > 175000.00 pg/mL (0-450)
[2017-01-31] MEDS ORDERED: DUONEB 3 MG/3 ML3 M1 INH (10:52)
[2017-01-31 11:30] VITALS: BP 161/71
--- NOTE | 2017-01-31 11:32 | NUR ---
ONE ATTEMPT AT ABG THAT WAS UNSUCDFESSFUL . PT DID NOT WANT ME TO TRY AGAIN. MD MADE AWARE AND PT TAKEN TO ADMISSION ROOM OF 412-2.
--- NOTE | 2017-01-31 11:40 | NUR ---
A 76, admitted to , under the services of PARKER Helms MD with a diagnosis of CHF. Chief complaint is SOB, COUGH. Patient arrived via ambulatory from ER. Monitor applied. Initial assessment completed. Vital signs taken and recorded. PARKER HELMS MD notified of admission to the unit. Orders received. See assessment for past medical history, medications and allergies. Patient and/or family oriented to unit. [facility]. Clothing/patient valuable form completed. ANJALI EARLY
--- NOTE | 2017-01-31 12:00 | NUR ---
CALL PLACED TO DR CHEN REGARDING ADMISSION ORDERS. ORDERS RECEIVED.
[2017-01-31] MEDS ORDERED: AMARYL2 MG PO (12:08)
--- NOTE | 2017-01-31 13:00 | NUR ---
RESP ATTEMPTED BLOOD GASES X 3 WITH NO SUCCESS MADE AWARE ZANE BACK RN
--- NOTE | 2017-01-31 13:31 | NUR ---
DR RINCON'S ANSWERING SERVICE NOTIFIED OF CONSULT.
--- NOTE | 2017-01-31 13:50 | NUR ---
DR RINCON CALLED BACK REGARDING PT, UPDATED ON PT'S STATUS.
--- NOTE | 2017-01-31 14:50 | NUR ---
Shift chart check completed.
[2017-01-31 16:00] VITALS: BP 160/77
[2017-01-31 20:00] VITALS: BP 158/69
--- NOTE | 2017-01-31 20:00 | NUR ---
Patient resting quietly with no c/o discomfort. Respirations easy and regular. Vital signs stable. No overt distress. UP IN CHAIR. JUD CABEZAS
[2017-02-01] VITALS: BP 135/64
--- NOTE | 2017-02-01 | NUR ---
PT SITTING UP IN CHAIR. RESP-EASY AND REGULAR. NO C/O AT THIS TIME. CALL LIGHT IN REACH. SEE SHIFT ASSESSMENT.
--- NOTE | 2017-02-01 06:10 | NUR ---
SLEEPING IN BED AWAKENS EASILY. [id number], SEE EMAR. TOLERATED ROUTINE MED WITH NO PROBLEM. CALL LIGHT IN REACH.
--- NOTE | 2017-02-01 06:53 | NUR ---
Shift chart check completed.
--- NOTE | 2017-02-01 07:18 | NUR ---
DR CHEN HERE - CASE DISCUSSED
[2017-02-01 08:00] VITALS: BP 160/76
--- NOTE | 2017-02-01 09:10 | NUR ---
TAKEN OUT VIA WHEEL CAHIR TO MEET HIS RIDE. Discharge instructions reviewed with patient/family. Patient receptive and verbalizes understanding. Follow-up care arranged. Written instructions given to patient/family. KRISTIE PERSON
== END 2017-02-01 09:10 | disposition home or self-care (01) | DRG 291 ==
LOC: ED 09:37 → EDHOLD 10:53 → 4E 10:59
PROVIDERS: Emergency Medicine; ADMIT Internal Medicine
PROC: 5A1D00Z (ICD-10-PCS; principal; 2017-01-31)
DX: I13.2 Hypertensive heart and chronic kidney disease with heart failure and with stage 5 chronic kidney disease, or end stage renal disease (principal); N18.6 End stage renal disease; J96.01 Acute respiratory failure with hypoxia; I50.21 Acute systolic (congestive) heart failure; E78.5 Hyperlipidemia, unspecified; D64.9 Anemia, unspecified; I25.10 Atherosclerotic heart disease of native coronary artery without angina pectoris; E11.22 Type 2 diabetes mellitus with diabetic chronic kidney disease; K21.9 Gastro-esophageal reflux disease without esophagitis; Z79.899 Other long term (current) drug therapy; Z90.5 Acquired absence of kidney; Z95.1 Presence of aortocoronary bypass graft; Z87.891 Personal history of nicotine dependence; Z99.2 Dependence on renal dialysis; Z85.51 Personal history of malignant neoplasm of bladder; Z81.1 Family history of alcohol abuse and dependence; Z83.3 Family history of diabetes mellitus; Z93.6 Other artificial openings of urinary tract status

== ENCOUNTER 2017-02-22 17:55 | Emergency (ER) | payer MEDICARE, BC ==
[~2017-02-22] VITALS: Wt 59.0 kg
[~2017-02-22 17:55] MED LIST changes: +DUONEB 3 MG/3 ML3 M1 INH
[2017-02-22 18:39] LABS: ABG BASE EXCESS 2.6 mmol/L (-2.0-2.0); ABG HCO3 26.8 mmol/l (22-26); ARTERIAL BLOOD GAS PCO2 40.7 mmHg (35-45); ARTERIAL BLOOD GAS PH 7.431 (7.35-7.45)
[2017-02-22 18:45] LABS: BASO # 0.1 10*3/uL (0.0-0.1); BASO % 0.9 % (0.0-1.0); EOS # 0.1 10*3/uL (0.0-0.4); EOS % 0.4 % (1.0-4.0); HEMATOCRIT 32.9 % (42.0-52.0); HEMOGLOBIN 10.5 g/dl (14.0-18.0); LYMPH # 1.4 10*3/uL (1.3-4.4); LYMPH % 11.3 % (27.0-41.0); MEAN CELL VOLUME 91.9 fl (80.0-94.0); MEAN CORPUSCULAR HGB 29.3 pg (27.0-31.0); MEAN CORPUSCULAR HGB CONC 31.9 g/dl (33.0-37.0); MEAN PLATELET VOLUME 11.2 fl (9.6-12.3); MONO # 0.8 10*3/uL (0.1-1.0); MONO % 6.5 % (3.0-9.0); NEUT # 9.9 10*3/uL (2.3-7.9); NEUT % 80.1 % (47.0-73.0); PLATELET COUNT AUTOMATED 151 10*3/uL (130-400); RED BLOOD COUNT 3.58 10*6/uL (4.50-5.90); RED CELL DISTRI WIDTH 15.9 % (0-14.5); WHITE BLOOD COUNT 12.4 10*3/uL (4.8-10.8)
[2017-02-22 18:54] LABS: INTERNATIONAL NORM RATIO 1.3 (2.0-3.5)
[2017-02-22 19:01] LABS: ALBUMIN 2.9 gm/dl (3.1-4.5); ALKALINE PHOSPHATASE 103 U/L (45-117); BUN 52 mg/dl (7-24); CHLORIDE 97 mmol/L (98-107); CREATININE 7.72 mg/dL (0.70-1.30); MAGNESIUM 1.9 mg/dL (1.5-2.1); POTASSIUM 4.6 mmol/L (3.5-5.1); SGOT/AST 19 IU/L (3-35); SGPT/ALT 15 U/L (12-78); SODIUM 138 mmol/L (136-145); TOTAL PROTEIN 7.7 gm/dL (6.4-8.2)
[2017-02-22 19:09] LABS: TROPONIN I 0.046 ng/ml (<0.045)
[2017-02-22 19:47] LABS: NT-proBNP > 175000.00 pg/mL (0-450)
== END 2017-02-22 20:47 | disposition home or self-care (01) ==
LOC: ED 17:55
PROVIDERS: Physician Assistant
DX: I50.9 Heart failure, unspecified (principal); I25.10 Atherosclerotic heart disease of native coronary artery without angina pectoris; Z87.891 Personal history of nicotine dependence; Z90.89 Acquired absence of other organs; Z95.1 Presence of aortocoronary bypass graft; Z98.890 Other specified postprocedural states; Z79.899 Other long term (current) drug therapy

== ENCOUNTER → 2017-05-21 | Outpatient (CLI) | payer MEDICARE, BC | END | disposition home or self-care (01) | LOC: CARD 08:18 | DX: I08.2 Rheumatic disorders of both aortic and tricuspid valves (principal); I05.0 Rheumatic mitral stenosis; I27.20 Pulmonary hypertension, unspecified ==

== ENCOUNTER → 2017-06-01 | Outpatient (CLI) | payer MEDICARE, BC | END | disposition home or self-care (01) | LOC: CT 10:58 | DX: J98.11 Atelectasis (principal); R91.1 Solitary pulmonary nodule; I10 Essential (primary) hypertension; E11.9 Type 2 diabetes mellitus without complications; R09.89 Other specified symptoms and signs involving the circulatory and respiratory systems; Z72.0 Tobacco use ==

== ENCOUNTER 2017-07-05 10:22 | Inpatient (IN) | payer MEDICARE, BC ==
[~2017-07-05] VITALS: Ht 160 cm; Wt 55.5 kg
--- NOTE | ~2017-07-05 | PR ---
[place], [place] PROGRESS NOTE NAME: RADHA VELAZQUEZ [facility] #: [id number] UNIT #: [id number] ROOM: 405 DOCTOR: PARKER CHEN MD BIRTHDATE: [birth year] DOS: 07/09/2017 SUBJECTIVE: The patient is doing fine, sitting up, eating his breakfast, in no distress this morning, wearing his oxygen. OBJECTIVE: VITAL SIGNS: Pressure is 124/58, pulse of 78, respirations 18, temperature 97.9. LUNGS: Diminished breath sounds, clear. HEART: Regular. ABDOMEN: Soft and nontender. EXTREMITIES: Decreased edema. ASSESSMENT AND PLAN: 1. Acute systolic congestive heart failure, resolved. 2. End-stage renal failure, on dialysis. 3. Scarring. Abnormal CT scan that has been evaluated by Dr. Henson. The patient is continued improvement in the infectious process in the left upper lung and there is no evidence of acute pneumonia, so the patient does not need to be treated with IV antibiotics. 4. Acute hypoxic respiratory failure. Advised the patient to continue using the oxygen at all times. Discussed with patient's son who was present at the bedside. Plan is to discharge. PARKER CHEN MD CM:PNTRANS PARKER CHEN MD 07/09/174 interface
--- NOTE | ~2017-07-05 | CON ---
[place], [place] REPORT OF CONSULTATION NAME: RADHA VELAZQUEZ [facility] #: [id number] UNIT #: [id number] ROOM: 405 DOCTOR: ALDAIR KANG MDSERGEY BIRTHDATE: [birth year] DOS: 07/08/2017 CONSULTATION REQUESTED BY: Dr. Melina Serna. REASON FOR CONSULTATION: Assessment of abnormal CT scan. HISTORY OF PRESENT ILLNESS: This 77-year-old white male who has been well known to me from the past, Pulmonary problem with a chronic pleural fluid in the right side and also noted abnormal density in the lung, which has been assessed previously and appeared to be benign with gradual resolution. He has been admitted to the hospital under the care of Dr. Melina Serna on 07/05/2017. The presenting symptoms reported on admission as increased shortness of breath occurred at home. The patient noted grunting of respiration as well as he was seen in the office of Dr. Melina Serna. He was also reported having increased edema of the lower extremities with oxygen desaturation. The oxygen saturation noted in the low 80s. He has been admitted to the hospital. The patient this morning was receiving hemodialysis. He denies symptoms of coughing, sputum expectoration, any chest pain, or hemoptysis. He stated that shortness of breath has been improving gradually in the last 2 days. REVIEW OF SYSTEMS: CONSTITUTIONAL: Fatigue and tiredness reported without any symptoms of fever or chills. EYES: Denies burning, redness, tenderness. EAR, NOSE, AND THROAT: Denies sore throat, hoarseness, otalgia, postnasal drainage, or epistaxis. CARDIOVASCULAR: Denies angina pain, edema, pain of the lower extremity. GASTROINTESTINAL: Dysphagia, nausea, vomiting, diarrhea, abdominal pain, hematemesis, melena, or hematochezia. GENITOURINARY: History of end-stage renal failure on hemodialysis regularly. The patient receiving hemodialysis 3 times a week. I believe on Wednesday, , and Saturdays. MUSCULOSKELETAL: No acute joint pain, redness, or tenderness. SKIN: Denies any lesions or rashes, dryness of skin is reported. CENTRAL NERVOUS SYSTEM: Denies any symptoms of dizziness, headache, syncopal episodes. Remaining systems were reviewed. They were noted all negative. PAST MEDICAL HISTORY: 1. Essential hypertension. 2. Hypercholesterolemia. 3. Gastroesophageal reflux. 4. The patient with end-stage renal failure, on hemodialysis since 2001. 5. Mass-like lesion infiltration 3.7 x 3.1 x 1.5 cm with some cavitation noted as a left upper lung pulmonary nodule and 6 mm nodule in the lung as well with mildly abnormal PET activity and lymphadenopathy. Resolution progressive last assessment with a CT scan of the chest, which was done in this hospital on 06/01/2017 followup visit. 6. Chronic hypoxic respiratory failure. The patient uses oxygen 2-3 liters nasal cannula. 7. History of multiinfarct dementia. [place], [place] REPORT OF CONSULTATION NAME: RADHA VELAZQUEZ UNIT #: [id number] ROOM: 405 DOCTOR: ALDAIR KANG MD,SERGEY BIRTHDATE: [birth year] 8. Coronary artery disease with coronary artery bypass grafting. 9. Type 2 diabetes mellitus. PAST SURGICAL HISTORY: 1. Recent left upper extremity fistula formation. 2. Complete nephrectomy left side because of persistent hematuria in 2015. 3. Coronary artery bypass grafting. 4. Mitral valve replacement in 2015. 5. Bladder cancer surgery in 2001. 6. History of prostatectomy and lymph node dissection in 2001. 7. CT-guided needle aspiration biopsy of the left upper lung mass/infiltration on 02/22/2017 in [facility]. SOCIAL HISTORY: The patient was living at home by himself. He is and has one child. 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 Smoking from age of [age] years old, pack of cigarettes per day until 2006. FAMILY HISTORY: The father 66-year-old with complication of liver failure. The mother at age of 70-year-old with complications related to diabetes mellitus. HOME MEDICATIONS: Noted as use of omeprazole, Percocet, calcium acetate, Tylenol, mag oxide, lisinopril, Amaryl, simvastatin, metoprolol, and some other medications as well. DRUG ALLERGIES: Noted as no known drug allergies. PHYSICAL EXAMINATION: GENERAL: This is a 77-year-old white male who has been currently comfortably, receiving hemodialysis without any distress. VITAL SIGNS: Height of 5 feet 3 inches, weight 137 pounds. Normal temperature since admission, respiratory rate 18-20, heart rate 83-74, blood pressure 130/55-121/49. Pulse oxygen saturation on 2 liters nasal cannula was 100% saturation. HEENT: Head was atraumatic. Eye: Nonicterus. NECK: Supple. CARDIOVASCULAR: S1, S2 audible. LUNGS: Noted without any wheeze or crackles at the present time. ABDOMEN: Soft, nontender. EXTREMITIES: Left upper extremity fistula with minimal swelling of the left upper extremity. Lower extremity, patient showing resolving edema, currently noted 1+ edema. Visible skin noted dryness of the skin. Some scattered area of bruising of the skin. MUSCULOSKELETAL: No gross deformities. CENTRAL NERVOUS SYSTEM: Cranial nerves 2-12 intact. There were no gross focal neurologic deficit. LABORATORY DATA: CBC on 07/05, WBC count normal, hemoglobin 9.3, hematocrit 28.8, and platelet count normal. BNP of 25, BUN 47, creatinine 7.12. Remaining [place], [place] REPORT OF CONSULTATION NAME: RADHA VELAZQUEZ UNIT #: [id number] ROOM: 405 DOCTOR: ALDAIR KANG MD,SERGEY BIRTHDATE: [birth year] electrolytes are grossly normal. The renal function panel today, BUN 31, creatinine 6.22, CO2 34 prior to hemodialysis. DIAGNOSTIC DATA: Review of the radiology data. The chest x-ray that was done shows small area of the infiltration with the pleural fluid on the right lower lung and a small pleural fluid noted on the left side. CT scan of the chest that was done this admission was also reviewed personally, shows minimal area of scarring in the left upper lung, which is the residual area from past large area of cavitary infiltration or mass-like lesion. A small loculated pleural fluid was noted on the right side, appeared to be smaller as compared with the previous CT scan of the chest on 05/2017. Small left sided pleural fluid was also noted. IMPRESSION: 1. The patient who has been currently admitted to the hospital most likely developed acute on chronic hypoxic respiratory failure with fluid overload or congestive heart failure, combination. 2. History of end-stage renal failure, on hemodialysis. 3. Residual scarring in the past treated. 4. Infectious process. Inflammatory process of the left upper lung, but not raises any concern. 5. Longstanding chronic right pleural fluid was also noted with some area of atelectasis associated with that for a long period of time. The left pleural fluid was noted small, most likely related to current congestive heart failure and fluid overload. PLAN OF MANAGEMENT: The current findings are not suggestive of any acute pneumonia or of any other concern. The patient should be treated with hemodialysis, maximal free water removal. Oxygen supplementation to maintain pulse oxygen saturation 92% or greater. Discharge planning for the patient will be started at the present time. The patient will continue to outpatient followup in the office as previously scheduled for 6 months. Other supportive therapy, plan of management, and care plan. Usual treatment. Additional treatment changes will be ordered based on progression of the illness as needed. SERGEY QUINTEROS MD CM:CONSTR:REPORT OF CONSULTATION 1319 07/08/17 1948 interface
--- NOTE | ~2017-07-05 | DS ---
[place], [place] DISCHARGE SUMMARY NAME: RADHA VELAZQUEZ [facility] #: [id number] UNIT #: [id number] ROOM: 405 DOCTOR: PARKER CHEN MD BIRTHDATE: [birth year] DOS: 07/09/2017 DIAGNOSES: 1. Acute systolic congestive heart failure. 2. End-stage renal failure, on dialysis. 3. Noncompliance with poor insight to medical problems. 4. Recent surgery of the left upper arm with fistula placement, venous Doppler negative. 5. History of left upper lobe pneumonia which is slowly resolving. Even though CT calls it as abnormal, the patient has had a complete workup as an outpatient including PET scans and biopsies which have all come back. This is most likely infectious process, which is slowly resolving. 6. Coronary artery disease with history of coronary artery bypass graft. 7. Multi-infarct dementia. 8. Type 2 diabetes mellitus, non-insulin dependent. DISCHARGE MEDICATIONS: The patient's medications are the same as on admission, no new prescriptions were given. He is encouraged to use his oxygen around the clock. His meds are simvastatin 10 daily, Nexium 40 daily, PhosLo 667 t.i.d. with meals, metoprolol 50 daily, B complex vitamin, Nephrocaps daily, lisinopril 10 daily, Namzaric 14/10 at bedtime, Dulcolax p.r.n., Tessalon Perles p.r.n., breathing treatments q. 4, glimepiride 2 mg daily, mag oxide 400 b.i.d. HOSPITAL COURSE: This patient is 77, comes in with complaints of quite a lot of shortness of breath and left arm pain and swelling. Please refer to H and P for details. When he was found to be in acute hypoxic respiratory failure with evidence of acute systolic CHF and leg edema. The patient was immediately admitted to the hospital. After admission, Dr. Cochran was consulted, emergency dialysis was performed over the next several days. His leg edema and shortness of breath has improved and his CHF has resolved. A CT of the chest was done, which showed some abnormal findings on left upper lobe as well as pleural effusion. Dr. Henson was consulted. In comparison to his previous films, the findings on the left upper lobe was actually infectious and it is slowly resolving. He has already had a complete workup, which included PET scan and lung biopsy, which have come back negative. So, we are not considering malignancy at this point. The patient is encouraged to watch a low sodium diet and uses oxygen 24 hours. Stable this morning, plan is to discharge him to home. Follow up as an outpatient. [place], [place] DISCHARGE SUMMARY NAME: RADHA VELAZQUEZ UNIT #: [id number] ROOM: 405 DOCTOR: PARKER CHEN MD BIRTHDATE: [birth year] PARKER CHEN MD CM:DISCHNAMRATA 2 PARKER CHEN MD 07/09/17910 interface
--- NOTE | ~2017-07-05 | PR ---
[place], [place] PROGRESS NOTE NAME: RADHA VELAZQUEZ [facility] #: [id number] UNIT #: [id number] ROOM: 405 DOCTOR: PARKER CHEN MD BIRTHDATE: [birth year] DOS: SUBJECTIVE: The patient is resting comfortably. He is on dialysis right now. OBJECTIVE: VITAL SIGNS: Graphic trend shows blood pressure 133/55, pulse of 83, respirations 18, temperature 97.6. LUNGS: Clear. HEART: Regular. ABDOMEN: Soft. EXTREMITIES: Without any edema this morning. LABORATORY DATA: Renal panel noted. ASSESSMENT AND PLAN: 1. Acute systolic congestive heart failure. The patient has improved after extra dialysis was given. 2. Acute hypoxic respiratory failure. He is using oxygen. 3. Abnormal CT scan showed basilar atelectasis and effusions. The patient is being seen by Dr. Henson today. I doubt that there is an ongoing infectious process. The patient should be able to go home tomorrow. 4. Spiculated mass, with a negative PET scan as an outpatient as well as negative biopsies. No further treatment plan right now. PARKER CHEN MD CM:PNTRANS [id number] PARKER CHEN MD 07/08/17 0943 interface
--- NOTE | ~2017-07-05 | PR ---
[place], [place] PROGRESS NOTE NAME: RADHA VELAZQUEZ [facility] #: [id number] UNIT #: [id number] ROOM: 405 DOCTOR: NOLA DEVINE MD BIRTHDATE: [birth year] DOS: 07/07/2017 SUBJECTIVE: The patient says his breathing is improving after hemodialysis and extra fluid was removed. PHYSICAL EXAMINATION: VITAL SIGNS: Blood pressure 133/56, heart rate 76 beats per minute, breathing 20 times per minute, temperature 98 degrees Fahrenheit. GENERAL APPEARANCE: The patient is alert and oriented x 3, in no visible distress. HEENT AND NECK: Exam within normal limits. CARDIOVASCULAR SYSTEM: Heart rate is regular in rate and rhythm. S1 and S2 normally audible. LUNGS: Clear to auscultation. ABDOMEN: Soft, nontender. No obvious organomegaly. Bowel sounds are present. EXTREMITIES: Generalized weakness and muscle wasting. The patient also has a shunt placement in his left arm, which is new. IMPRESSION AND PLAN: 1. End-stage kidney failure. The patient remains on hemodialysis. Extra fluid was removed because of congestive heart failure. 2. Acute systolic type congestive heart failure, improved with removal of extra fluid. 3. The patient with lung infiltrates on CT of the chest at the base of the right lung compatible with pneumonia. I will consult Dr. Henson for evaluation. 4. Spiculated scarring in the left upper lung to be evaluated by ribbon winder, Dr. Henson along with loculated pleural effusion. 5. Benign essential hypertension with controlled blood pressures. 6. Mixed hyperlipidemia, to be followed and treated. 7. Coronary artery disease of [place] vessels without any complaints of chest pains. 8. Diabetes mellitus with somewhat elevated blood sugars. NOLA DEVINE MD CM:PNTRANS 41 42 NOLA DEVINE MD 07/07/171941 interface
--- NOTE | ~2017-07-05 | WRIGHTHP ---
[place], [place] PATIENT HISTORY AND PHYSICAL EXAM NAME: RADHA VELAZQUEZ UNIT #: [id number] ROOM: 405 DOCTOR: PARKER CHEN MD BIRTHDATE: [birth year] DOS: 07/05/2017 HISTORY OF PRESENT ILLNESS: The patient is 77-year-old. The patient comes to the office for routine appointment. He has grunting respirations, increasingly short of breath with leg edema. His saturation was in the low 80s. He was not using his oxygen. He denies having any chest pains, palpitations. Complained of a lot of pain in his left arm. PAST MEDICAL HISTORY: Significant for: 1. End-stage renal failure, on dialysis. 2. Recent fistula placement in the left arm less than a week ago. 3. Type 2 diabetes mellitus, insulin-dependent. 4. Coronary artery disease, history of coronary artery bypass graft. 5. Multi-infarct dementia. 6. Noncompliance with poor insight to medical problems. MEDICATIONS: That he is on are Tylenol, Percocet, calcium acetate, omeprazole, glimepiride, lisinopril, mag oxide, metoprolol, Namzaric, simvastatin. SOCIAL HISTORY: Nonsmoker. PHYSICAL EXAMINATION: GENERAL: He is awake and alert and oriented, grunting respirations, quite short of breath. VITAL SIGNS: Pulse ox in the low 80s on room air. LUNGS: Diminished breath sounds, scattered rales in the left lung base. HEART: Regular. ABDOMEN: Obese, distended. EXTREMITIES: With 2+ pitting edema bilaterally. Left arm is swollen and tender to touch. ASSESSMENT AND PLAN: 1. End-stage renal failure, on dialysis. 2. Acute systolic congestive heart failure with acute hypoxic respiratory failure. We will admit for emergency dialysis. Discussed with patient and son, advised avoiding high salty foods. 3. Benign hypertension, controlled. 4. Recent surgery of the left arm. We will check a venous Doppler to rule out deep venous thrombosis. [place], [place] PATIENT HISTORY AND PHYSICAL EXAM NAME: RADHA VELAZQUEZ UNIT #: [id number] ROOM: 405 DOCTOR: PARKER CHEN MD BIRTHDATE: [birth year] PARKER CHEN MD CM:HISPHYS:PATIENT HISTORY AND PHYSICAL EXAMINATION 0936 [id number] PARKER CHEN MD 07/06/17 0947 interface
[2017-07-05 10:50] VITALS: BP 126/68; BP 129/70
[2017-07-05] MEDS ORDERED: MAGNESIUM OXID400 MG PO (11:15)
[2017-07-05] MEDS ORDERED: Percocet 325 MG1 TAB PO (11:17)
[2017-07-05 12:00] VITALS: BP 126/68
[2017-07-05 12:54] LABS: BASO # 0.1 10*3/uL (0.0-0.1); BASO % 1.1 % (0.0-1.0); EOS # 0.3 10*3/uL (0.0-0.4); EOS % 2.7 % (1.0-4.0); HEMATOCRIT 28.8 % (42.0-52.0); HEMOGLOBIN 9.3 g/dl (14.0-18.0); LYMPH # 0.8 10*3/uL (1.3-4.4); MEAN CORPUSCULAR HGB 31.6 pg (27.0-31.0); MEAN CORPUSCULAR HGB CONC 32.3 g/dl (33.0-37.0); MEAN PLATELET VOLUME 10.5 fl (9.6-12.3); MONO # 0.7 10*3/uL (0.1-1.0); MONO % 7.1 % (3.0-9.0); NEUT # 7.4 10*3/uL (2.3-7.9); NEUT % 78.9 % (47.0-73.0); PLATELET COUNT AUTOMATED 174 10*3/uL (130-400); RED BLOOD COUNT 2.94 10*6/uL (4.50-5.90); RED CELL DISTRI WIDTH 14.4 % (0-14.5); WHITE BLOOD COUNT 9.4 10*3/uL (4.8-10.8)
[2017-07-05 13:06] LABS: CREATININE 7.12 mg/dL (0.70-1.30); POTASSIUM 4.8 mmol/L (3.5-5.1)
[2017-07-05 16:00] VITALS: BP 143/62
[2017-07-05] MEDS ORDERED: PAIN & FEVER R325 MG PO (18:37)
[2017-07-05 20:00] VITALS: BP 140/51
[2017-07-06] VITALS: BP 120/54
[2017-07-06 06:29] LABS: ALBUMIN 2.5 gm/dl (3.1-4.5); CREATININE 5.66 mg/dL (0.70-1.30); PHOSPHOROUS 4.3 mg/dL (2.5-4.9); POTASSIUM 4.3 mmol/L (3.5-5.1)
[2017-07-06 08:00] VITALS: BP 136/59
[2017-07-06 12:00] VITALS: BP 127/55
[2017-07-06 16:00] VITALS: BP 113/55
[2017-07-06 20:00] VITALS: BP 133/55
[2017-07-07] VITALS: BP 110/47
[2017-07-07 08:00] VITALS: BP 118/59
[2017-07-07 11:07] LABS: ALBUMIN 2.4 gm/dl (3.1-4.5); CREATININE 4.84 mg/dL (0.70-1.30); PHOSPHOROUS 3.3 mg/dL (2.5-4.9)
[2017-07-07 12:00] VITALS: BP 133/56
[2017-07-07 16:00] VITALS: BP 121/49
[2017-07-07 20:00] VITALS: BP 131/61
[2017-07-08] VITALS: BP 130/65
[2017-07-08 06:16] LABS: ALBUMIN 2.4 gm/dl (3.1-4.5); CREATININE 6.22 mg/dL (0.70-1.30); PHOSPHOROUS 4.7 mg/dL (2.5-4.9); POTASSIUM 4.2 mmol/L (3.5-5.1)
[2017-07-08 08:00] VITALS: BP 133/55
[2017-07-08 12:00] VITALS: BP 133/60
[2017-07-08 16:00] VITALS: BP 136/51
[2017-07-08 20:03] VITALS: BP 123/63
[2017-07-09] VITALS: BP 124/58
== END 2017-07-09 09:39 | disposition home or self-care (01) | DRG 291 ==
LOC: 4E 10:22
PROVIDERS: Family Medicine; Internal Medicine
PROC: 5A1D70Z Performance of Urinary Filtration, Intermittent, Less than 6 Hours Per Day (ICD-10-PCS; principal; 2017-07-05)
PROC: 5A1D70Z Performance of Urinary Filtration, Intermittent, Less than 6 Hours Per Day (ICD-10-PCS; 2017-07-06)
PROC: 5A1D70Z Performance of Urinary Filtration, Intermittent, Less than 6 Hours Per Day (ICD-10-PCS; 2017-07-08)
DX: I13.2 Hypertensive heart and chronic kidney disease with heart failure and with stage 5 chronic kidney disease, or end stage renal disease (principal); N18.6 End stage renal disease; J96.21 Acute and chronic respiratory failure with hypoxia; E11.22 Type 2 diabetes mellitus with diabetic chronic kidney disease; E11.65 Type 2 diabetes mellitus with hyperglycemia; C67.9 Malignant neoplasm of bladder, unspecified; D53.9 Nutritional anemia, unspecified; I50.23 Acute on chronic systolic (congestive) heart failure; I42.9 Cardiomyopathy, unspecified; K21.9 Gastro-esophageal reflux disease without esophagitis; I25.10 Atherosclerotic heart disease of native coronary artery without angina pectoris; F03.90 Unspecified dementia, unspecified severity, without behavioral disturbance, psychotic disturbance, mood disturbance, and anxiety; J98.4 Other disorders of lung; E53.8 Deficiency of other specified B group vitamins; E78.00 Pure hypercholesterolemia, unspecified; E78.2 Mixed hyperlipidemia; Z83.3 Family history of diabetes mellitus; Z91.19 Patient's noncompliance with other medical treatment and regimen; Z95.1 Presence of aortocoronary bypass graft; Z79.899 Other long term (current) drug therapy; Z99.2 Dependence on renal dialysis; Z83.79 Family history of other diseases of the digestive system; Z99.81 Dependence on supplemental oxygen; Z81.1 Family history of alcohol abuse and dependence

== ENCOUNTER → 2017-12-10 | Outpatient (CLI) | payer MEDICARE, BC ==
[~2017-12-10] MED LIST changes: +PAIN & FEVER R325 MG PO; +Percocet 325 MG1 TAB PO
== END | disposition home or self-care (01) ==
LOC: CT 11-30 11:00
DX: J84.10 Pulmonary fibrosis, unspecified (principal); J90 Pleural effusion, not elsewhere classified

== ENCOUNTER → 2018-04-19 | Outpatient (CLI) | payer MEDICARE, BC | END | disposition home or self-care (01) | LOC: LAB 12:40 | DX: J43.9 Emphysema, unspecified (principal); I51.7 Cardiomegaly; I10 Essential (primary) hypertension; E11.9 Type 2 diabetes mellitus without complications; Z95.1 Presence of aortocoronary bypass graft; Z95.2 Presence of prosthetic heart valve ==

== ENCOUNTER → 2018-06-13 | Outpatient (CLI) | payer MEDICARE, BC ==
[~2018-06-13] MED LIST changes: +ASPIRIN ADULT L81 M1 PO; +AUGMENTIN 875-875 MG PO; +CALCIUM ACETAT667 M2 PO; +DIALYVITE 8000.8 MG PO; +ENTRESTO 97 MG1 EACH PO; +LASIX80 MG PO
== END | disposition home or self-care (01) ==
LOC: CT 11:00
DX: J90 Pleural effusion, not elsewhere classified (principal); R91.1 Solitary pulmonary nodule; I70.0 Atherosclerosis of aorta; I25.10 Atherosclerotic heart disease of native coronary artery without angina pectoris; Z95.1 Presence of aortocoronary bypass graft

== ENCOUNTER 2019-01-10 04:29 | Inpatient (IN) | payer MEDICARE, BC ==
[~2019-01-10] VITALS: Wt 60.8 kg
--- NOTE | ~2019-01-10 | WRIGHTHP ---
[place], [place] PATIENT HISTORY AND PHYSICAL EXAM NAME: RADHA VELAZQUEZ [facility]IN [facility] #: [id number] UNIT #: [id number] ROOM: 502 DOCTOR: NOLA DEVINE MD BIRTHDATE: [birth year] DOS: 01/10/2019 HISTORY OF PRESENT ILLNESS: The patient presented to the Emergency Department at [facility] with increasing shortness of breath and was diagnosed as having pneumonitis by Dr. Daniel Silva in the Emergency Department. Soon after admission, the patient developed increased shortness of breath and became unresponsive while he still had a normal sinus rhythm on the monitor and storage bin tender. Initially, rapid response and later code blue was called and the patient was started on CPR, finally intubated and started on ventilation. The patient remained unresponsive and despite of all the efforts, he later on showed no rhythm on the monitor and storage bin tender. The patient was given dose of epinephrine with not much response. The patient's son was contacted for his code status and the patient had changed it to full code recently. The patient's son, Andre, who is a manager endoscopy, finally decided to stop the code and the efforts were stopped. The patient with past medical history of; 1. Coronary artery disease of the [place] vessel and coronary artery bypass grafts. 2. End-stage kidney disease. The patient is on hemodialysis. 3. Type 2 diabetes mellitus. 4. Chronic systolic type congestive heart failure. 5. History of ileostomy for carcinoma of the bladder. 6. Late onset Alzheimer's type dementia. PHYSICAL EXAMINATION: GENERAL: The patient is alert, oriented, somewhat short of breath on admission. Generalized weakness. VITAL SIGNS: Blood pressure was 153/76, heart rate 61 beats per minute, breathing 15 times per minute. HEENT AND NECK: Extraocular movements are intact. Sclerae are anicteric. Oral mucosa is moist and clean. No obvious facial weakness. Neck is supple without any lymphadenopathy. No thyromegaly. No JVD. No carotid arterial bruits. LUNGS: Decreased breath sounds. CARDIOVASCULAR SYSTEM: Heart rate is regular in rate and rhythm. S1 and S2 normally audible. No significant murmur or any other abnormal cardiac sounds. ABDOMEN: Soft, nontender. No obvious organomegaly. Bowel sounds are present. No obvious herniation. EXTREMITIES: Without significant cyanosis or edema. Warm to touch. CENTRAL NERVOUS SYSTEM: Alert and oriented x 3. Cranial nerves II-XII are intact. Speech is normal. The patient is able to move all extremities. Normal muscle strength. Deep tendon reflexes are equal on both sides. Plantars were downgoing. IMPRESSION: 1. The patient presenting with respiratory failure and a CT of the chest showed occlusion of the right middle bronchus with near complete collapse of the right middle lobe, after which the patient became unresponsive. 2. Unresponsiveness with loss of blood pressure and pulse, treated with CPR and resuscitation including epinephrine which failed to revive him and found his [place], [place] PATIENT HISTORY AND PHYSICAL EXAM NAME: RADHA VELAZQUEZ UNIT #: [id number] ROOM: [facility] DOCTOR: NOLA DEVINE MD BIRTHDATE: [birth year] code status was changed to comfort care and the resuscitation was stopped on his son's request. 3. Type 2 diabetes mellitus, was being treated at home. 4. Acute exacerbation of chronic obstructive pulmonary disease, which was being treated with DuoNebs. NOLA DEVINE MD CM:HISPHYS:PATIENT HISTORY AND PHYSICAL EXAMINATION 32 04 NOLA DEVINE MD 01/10/19 2004 interface
--- NOTE | ~2019-01-10 | PR ---
[place], [place] PROGRESS NOTE [id number] UN[facility] #: [id number] ROOM: 502 DOCTOR: FANNY LINARES DO BIRTHDATE: [birth year] DOS: 01/10/2019 PROCEDURE: Emergent endotracheal intubation. PROCEDURE NOTE: This is an 78-year-old male who was currently admitted to Dr. Deluna service being treated for pneumonitis. He developed sudden onset shortness of breath and went unresponsive. A code blue was called, which is when I responded. CPR was in progress. A size 7.5 endotracheal tube was inserted with direct visualization of vocal cords. There was good color change on the CO2 detector. Breath sounds were equal bilaterally. There were no complications during the procedure. FANNY LINARES DO CM:PNTRANS [id number] FANNY LINARES DO 01/10/19 1105 interface
--- NOTE | ~2019-01-10 | EKG ---
[place], [place] ELECTROCARDIOGRAM REPORT NAME: RADHA VELAZQUEZ UNIT #: [id number] ROOM: 502 DOCTOR: KEYONNA DRAFT REPORT BIRTHDATE: [address] [facility] Test Date: 2019-01-10 Test Time: 04:33:01 Pat Name: RADHA VELAZQUEZ Department: Room: 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
[2019-01-10 04:34] VITALS: BP 159/93
[2019-01-10 04:56] LABS: LYMPH % 13.8 % (27.0-41.0); MEAN CELL VOLUME 98.7 fl (80.0-94.0); MEAN CORPUSCULAR HGB 31.2 pg (27.0-31.0); MEAN CORPUSCULAR HGB CONC 31.6 g/dl (33.0-37.0); MEAN PLATELET VOLUME 12.3 fl (9.6-12.3); NEUT % 73.7 % (47.0-73.0); PLATELET COUNT AUTOMATED 94 10*3/uL (130-400); RED BLOOD COUNT 3.85 10*6/uL (4.50-5.90); RED CELL DISTRI WIDTH 16.9 % (0-14.5); WHITE BLOOD COUNT 9.3 10*3/uL (4.8-10.8)
[2019-01-10 04:57] LABS: BASO # 0.2 10*3/uL (0.0-0.1); BASO % 1.9 % (0.0-1.0); EOS # 0.2 10*3/uL (0.0-0.4); EOS % 2.4 % (1.0-4.0); LYMPH # 1.3 10*3/uL (1.3-4.4); MONO # 0.7 10*3/uL (0.1-1.0); MONO % 7.4 % (3.0-9.0); NEUT # 6.9 10*3/uL (2.3-7.9)
[2019-01-10 05:14] LABS: ALBUMIN 3.4 gm/dl (3.1-4.5); CREATININE 8.45 mg/dL (0.70-1.30); POTASSIUM 5.8 mmol/L (3.5-5.1); TOTAL PROTEIN 8.9 gm/dL (6.4-8.2)
[2019-01-10 05:15] LABS: ACT PARTIAL THROMBO TIME 26.8 SECONDS (20.0-32.1); INTERNATIONAL NORM RATIO 1.3 (2.0-3.5)
[2019-01-10 05:16] LABS: TROPONIN I 0.017 ng/ml (<0.045)
[2019-01-10 05:37] VITALS: BP 146/76
[2019-01-10 06:31] VITALS: BP 139/73
[2019-01-10 06:58] VITALS: BP 144/56
[2019-01-10 08:25] VITALS: BP 153/76
== END 2019-01-10 10:47 | disposition expired | DRG 208 ==
LOC: ED 04:29 → EDHOLD 09:10 → 5E 09:30
PROVIDERS: Student in an Organized Health Care Education/Training Program; ADMIT Internal Medicine
PROC: 0BH17EZ Insertion of Endotracheal Airway into Trachea, Via Natural or Artificial Opening (ICD-10-PCS; principal; 2019-01-10)
PROC: 5A12012 Performance of Cardiac Output, Single, Manual (ICD-10-PCS; principal; 2019-01-10)
PROC: 5A1935Z Respiratory Ventilation, Less than 24 Consecutive Hours (ICD-10-PCS; principal; 2019-01-10)
DX: J96.90 Respiratory failure, unspecified, unspecified whether with hypoxia or hypercapnia (principal); J18.9 Pneumonia, unspecified organism; N18.6 End stage renal disease; J44.0 Chronic obstructive pulmonary disease with (acute) lower respiratory infection; I50.22 Chronic systolic (congestive) heart failure; J44.1 Chronic obstructive pulmonary disease with (acute) exacerbation; I25.10 Atherosclerotic heart disease of native coronary artery without angina pectoris; G30.1 Alzheimer's disease with late onset; F02.80 Dementia in other diseases classified elsewhere, unspecified severity, without behavioral disturbance, psychotic disturbance, mood disturbance, and anxiety; E11.22 Type 2 diabetes mellitus with diabetic chronic kidney disease; Z85.51 Personal history of malignant neoplasm of bladder; Z95.1 Presence of aortocoronary bypass graft; Z99.2 Dependence on renal dialysis